=== PATIENT | male | born 1955 | race Caucasian/White ===

== ENCOUNTER 2016-12-09 06:38 | Day surgery (SDC) | payer MEDICAID ==
[2016-12-09] MEDS ORDERED: Lactated Ringers 1,000 ML IV SCH (06:45)
[2016-12-09] MEDS ORDERED: Propofol 200 MG/20 ML SDV IV ONE (08:00)
--- NOTE | 2016-12-09 08:36 | PCM.OPNOTE ---
- General Post-Op/Procedure Note Date of Surgery/Procedure: 12/09/16 Operative Procedure(s): c scope Findings: sharp angle at splenic flexure unable advance scope otherwise normal colon Pre Op Diagnosis: colon cancer screening Post-Op Diagnosis: Same Anesthesia Technique: MAC Primary Surgeon: Hunter Ang Anesthesia Provider: Ameya Patel Pathology: none Complications: None Condition: Good Free Text/Narrative:: see dictation
[2016-12-09 09:25] VITALS: BP 118/66
--- NOTE | 2016-12-09 13:44 | OR ---
DATE OF OPERATION: 12/09/2016 SURGEON: Hunter Ang MD PROCEDURE PERFORMED: Colonoscopy with splenic flexure. PREOPERATIVE DIAGNOSIS: Need for colon cancer screening. POSTOPERATIVE DIAGNOSIS: Sharp angled splenic flexure. Otherwise, normal descending sigmoid and rectum, parts of the colon. INDICATIONS FOR PROCEDURE: This is a 61-year-old white male, who presents for a followup exam. He was offered and accepted scope. DESCRIPTION OF PROCEDURE: After an excellent IV sedation was administered, digital rectal exam was performed. No marked abnormality was noted. The flexible colonoscope was inserted and advanced. We advanced the scope all the way to the cecum. However, on further evaluation, this did not have the classic anatomic appearance of the cecum, despite maneuvers could not advance the scope further, could not identify the ileocecal valve, and on retroflexing the scope, a large loop did flap out and it appears that we made it to the splenic flexure and could not get beyond the angle presented. The following findings were noted. Descending colon, unremarkable. Sigmoid, unremarkable. Rectum and anus unremarkable. We will be obtaining an air contrast barium enema to further evaluate the colon. /[id number] /MODL
== END 2016-12-09 09:45 | disposition home or self-care (01) ==
LOC: FB.SDS 06:38
PROVIDERS: ATTEND Surgery
DX: Z12.11 Encounter for screening for malignant neoplasm of colon (principal); Z98.890 Other specified postprocedural states
CPT/HCPCS: 45378; J7120; J2704

== ENCOUNTER 2025-07-26 20:40 | Emergency (ER) | payer MEDICAID, MEDICARE ==
[2025-07-26 21:04] VITALS: BP 173/92; PULSE 58
== END 2025-07-26 21:34 | disposition home or self-care (01) ==
LOC: FB.ED 20:40
DX: S61.211A Laceration without foreign body of left index finger without damage to nail, initial encounter (principal); W26.8XXA Contact with other sharp object(s), not elsewhere classified, initial encounter
CPT/HCPCS: 12001; 99282